=== PATIENT | male | born 1960 ===

== ENCOUNTER 2024-06-05 05:53 | Day surgery (SDC) | payer OTHER ==
[2024-06-02 10:54] LABS: HEMATOCRIT 46.6 % (39.0-48.0); HEMOGLOBIN 15.8 g/dL (13-16.00); MEAN CELL VOLUME 93.1 fL (80.0-100.00); MEAN CORPUSCULAR HEMOGLOBIN 31.5 pg (27.00-32.0); MEAN CORPUSCULAR HGB CONC 33.8 g/dl (32.0-36.0); PLATELET COUNT 236 K/uL (150-450); RED CELL DISTRIBUTION WIDTH 13.7 % (11.5-14.5)
[2024-06-02 11:23] LABS: INR 1.09; PARTIAL THROMBOPLASTIN TIME 31.9 SECONDS (22.0-34.0); PROTHROMBIN TIME 11.8 SECONDS (9.0-11.5)
[2024-06-02 11:34] LABS: BILIRUBIN TOTAL 0.53 mg/dL (0.3-1.2); CALCIUM 9.6 mg/dL (8.5-10.1); CREATININE SERUM 0.81 mg/dL (0.70-1.30); GFR 95.63; GLOBULINA 3.8 G/DL (2.4-3.5); TOTAL PROTEIN 7.8 gm/dL (6.4-8.2)
[2024-06-05] MEDS ORDERED: MIDAZOLAM HCL 2 MG/2 ML VIAL IV ONE (10:00)
[2024-06-05] MEDS ORDERED: fentaNYL CITRATE 50 MCG/ML AMPUL IV ONE (10:00)
[2024-06-05] MEDS ORDERED: DIPHENHYDRAMINE HCL 50 MG/ML VIAL 1ML IV ONE (10:00)
== END 2024-06-05 12:20 | disposition home or self-care (01) ==
LOC: AMB-ENDOS 05:53 → CIR.AMB 12:00 → AMB-ENDOS 12:20
PROVIDERS: ATTEND Surgery
DX: D37.4 Neoplasm of uncertain behavior of colon (principal); K63.5 Polyp of colon; K57.30 Diverticulosis of large intestine without perforation or abscess without bleeding

== ENCOUNTER 2024-07-14 11:57 | Inpatient (IN) | payer OTHER ==
[~2024-07-14] VITALS: Ht 170.2 cm; Wt 81.6 kg
[2024-07-14] MEDS ORDERED: GRALISE600 MG PO (13:05)
[2024-07-14] MEDS ORDERED: METFORMIN HCL1000 M2 PO (13:07)
[2024-07-14] MEDS ORDERED: GLUCOTROL XL5 MG PO (13:07)
[2024-07-14] MEDS ORDERED: AVAPRO300 MG PO (13:08)
[2024-07-14] MEDS ORDERED: NORVASC10 MG PO (13:08)
[2024-07-14] MEDS ORDERED: LIPITOR20 MG PO (13:08)
[2024-07-14] MEDS ORDERED: HUMULIN 70100 UNIT/2 SUBCUTANEO (13:14)
[2024-07-21] MEDS ORDERED: CEFTRIAXONE SODIUM 2,000 MG VIAL IV ONE (08:45)
[2024-07-21] MEDS ORDERED: LIDOCAINE HCL 1%/EPINEPHRINE 20ML VIAL IJ ONE (08:45)
[2024-07-21] MEDS ORDERED: BUPIVACAINE HCL 30 ML VIAL IJ ONE (08:45)
[2024-07-21] MEDS ORDERED: METRONIDAZOLE/SODIUM CHLORIDE 5 MG/ML ML IV ONE (08:45)
[2024-07-21] MEDS ORDERED: FLONASE16 GM (09:25)
[2024-07-21] MEDS ORDERED: IRBESARTAN-HCT1 EAC1 (09:25)
[2024-07-21] MEDS ORDERED: FLUOXETINE HCL20 MG (09:25)
[2024-07-21] MEDS ORDERED: FINASTERIDE5 MG (09:25)
[2024-07-21] MEDS ORDERED: OMEPRAZOLE40 MG (09:25)
[2024-07-21] MEDS ORDERED: GLIPIZIDE10 MG (09:25)
[2024-07-21] MEDS ORDERED: TAMSULOSIN HCL0.4 MG (09:25)
[2024-07-21] MEDS ORDERED: TRAZODONE HCL50 MG (09:25)
[2024-07-21] MEDS ORDERED: GABAPENTIN800 M1 (09:26)
[2024-07-21] MEDS ORDERED: DEXTROSE 50 % IN WATER 0.5 G/ML DISP.SYRIN IV PRN ×2 (10:15→12:15)
[2024-07-21] MEDS ORDERED: 0.9 % SODIUM CHLORIDE 1,000 ML IV SCH (10:15)
[2024-07-21] MEDS ORDERED: OxyCODONE HCL 5 MG TABLET (ROXICODONE) PO PRN (10:15)
[2024-07-21] MEDS ORDERED: ONDANSETRON HCL 2 MG/ML VIAL IV PRN (10:15)
[2024-07-21] MEDS ORDERED: MORPHINE SULFATE 4 MG/ML CARTRIDGE IV PRN (10:15)
[2024-07-21] MEDS ORDERED: MORPHINE SULFATE 4 MG/ML VIAL IV ONE ×2 (11:05→11:35)
[2024-07-21] MEDS ORDERED: ALBUTEROL SULFATE 3 ML/2.5 MG AMPUL.NEB IH SCH (12:04)
[2024-07-21 12:14] LABS: HEMATOCRIT 42.3 % (39.0-48.0); HEMOGLOBIN 14.5 g/dL (13-16.00); MEAN CELL VOLUME 92.6 fL (80.0-100.00); MEAN CORPUSCULAR HEMOGLOBIN 31.7 pg (27.00-32.0); MEAN CORPUSCULAR HGB CONC 34.2 g/dl (32.0-36.0); PLATELET COUNT 197 K/uL (150-450); RED BLOOD COUNT 4.56 M/uL (4.00-6.00); RED CELL DISTRIBUTION WIDTH 14.1 % (11.5-14.5)
[2024-07-21] MEDS ORDERED: INSULIN LISPRO 1,000 UNIT/10 ML UNITS SUBCUTANEO PRN (12:15)
[2024-07-21] MEDS ORDERED: ENALAPRILAT DIHYDRATE 1.25 MG/ML VIAL IV PRN (12:15)
[2024-07-21 12:36] LABS: ALBUMIN 3.5 gm/dL (3.4-5.0); CALCIUM 8.6 mg/dL (8.5-10.1); CREATININE SERUM 0.92 mg/dL (0.70-1.30); GFR 82.57; MAGNESIUM 1.7 mg/dL (1.8-2.4); PHOSPHOROUS 3.4 mg/dL (2.5-4.9); POTASSIUM 4.07 mEq/L (3.5-5.1)
[2024-07-21] MEDS ORDERED: HYOSCYAMINE SULFATE 0.125 MG TAB.SUBL SL SCH (13:00)
[2024-07-21] MEDS ORDERED: ACETAMINOPHEN 500 MG GEL..CAP PO SCH (14:00)
[2024-07-21] MEDS ORDERED: GABAPENTIN 300 MG CAPSULE PO SCH (17:00)
[2024-07-21] MEDS ORDERED: METRONIDAZOLE/SODIUM CHLORIDE 500 MG/100 ML PIGGYBACK IV SCH (17:00)
[2024-07-21] MEDS ORDERED: POLYETHYLENE GLYCOL 3350 17 GM BLIST.PACK PO SCH (17:00)
[2024-07-21 17:32] VITALS: BP 140/91; O2SAT 95
[2024-07-21] MEDS ORDERED: FAMOTIDINE/PF 20 MG/2 ML VIAL IV PUSH SCH (21:00)
[2024-07-21] MEDS ORDERED: TAMSULOSIN HCL 0.4 MG CAP PO SCH (21:00)
[2024-07-21] MEDS ORDERED: CELECOXIB 200 MG CAPSULE PO SCH (21:00)
[2024-07-22] VITALS (9 sets, daily range): BP systolic 61–119; BP diastolic 42–83; O2SAT 88–100
[2024-07-22] MEDS ORDERED: 0.9 % SODIUM CHLORIDE 1,000 ML IV SCH (03:15)
[2024-07-22 03:23] LABS: HEMATOCRIT 32.9 % (39.0-48.0); MEAN CELL VOLUME 93.1 fL (80.0-100.00); MEAN CORPUSCULAR HEMOGLOBIN 31.2 pg (27.00-32.0); MEAN CORPUSCULAR HGB CONC 33.5 g/dl (32.0-36.0); PLATELET COUNT 231 K/uL (150-450); RED BLOOD COUNT 3.53 M/uL (4.00-6.00); RED CELL DISTRIBUTION WIDTH 14.6 % (11.5-14.5)
[2024-07-22 03:55] LABS: ALBUMIN 2.8 gm/dL (3.4-5.0); CREATININE SERUM 2.63 mg/dL (0.70-1.30); GFR 24.57; MAGNESIUM 1.9 mg/dL (1.8-2.4); PHOSPHOROUS 6.2 mg/dL (2.5-4.9); POTASSIUM 5.06 mEq/L (3.5-5.1)
[2024-07-22] MEDS ORDERED: NOREPINEPHRINE BITARTRATE 8 MG in DEXTROSE 5 % IN WATER 250 ML IV SCH ×2 (04:00→16:15)
[2024-07-22] MEDS ORDERED: INSULIN NPH HUMAN ISOPHANE 1,000 UNITS/10 ML UNITS SUBCUTANEO STA (08:05)
[2024-07-22] MEDS ORDERED: HYDROCHLOROTHIAZIDE 12.5 MG CAPSULE PO SCH (09:00)
[2024-07-22] MEDS ORDERED: IRBESARTAN 300 MG TABLET PO SCH (09:00)
[2024-07-22] MEDS ORDERED: LEVALBUTEROL HCL 0.63 MG/3 ML SOLUTION IH SCH (09:00)
[2024-07-22] MEDS ORDERED: FINASTERIDE 5 MG TABLET PO SCH (09:00)
[2024-07-22] MEDS ORDERED: AMLODIPINE BESYLATE 10 MG TABLET PO SCH (09:00)
[2024-07-22 14:43] LABS: ABG PH 7.429 (7.35-7.45); ABG PO2 67.7 mmHg (80-100); ABG pCO2 27.2 mmHg (35-45); BICARBONATE 17.6 mmol/l (23-25); SaO2 93.5 %; Tco2 18.5 mmol/l; allen test SATISFACTORY; o2 21 %; puncture site RADIAL RIGHT
[2024-07-22] MEDS ORDERED: ATORVASTATIN CALCIUM 20 MG TABLET PO SCH (17:00)
[2024-07-22] MEDS ORDERED: ENOXAPARIN SODIUM 40 MG/0.4 ML SYRINGE SUBCUTANEO SCH (17:00)
[2024-07-22] MEDS ORDERED: INSULIN NPH HUMAN ISOPHANE 1,000 UNITS/10 ML UNITS SUBCUTANEO SCH (17:00)
[2024-07-22] MEDS ORDERED: PANTOPRAZOLE SODIUM 40 MG/VIAL VIAL IV SCH (19:22)
[2024-07-23] VITALS (7 sets, daily range): BP systolic 136–138; BP diastolic 70–80; O2SAT 92–100
[2024-07-23] MEDS ORDERED: hydrALAZINE HCL 20 MG VIAL IV PRN (05:00)
[2024-07-23] MEDS ORDERED: AMINO ACIDS 4.25 %/DEXTROSE 5% 1,000 ML PERIFERAL SCH (05:15)
[2024-07-23] MEDS ORDERED: PANTOPRAZOLE SODIUM 80 MG in 0.9 % SODIUM CHLORIDE 100 ML IV SCH (06:45)
[2024-07-23] MEDS ORDERED: INSULIN NPH HUMAN ISOPHANE 1,000 UNITS/10 ML UNITS SUBCUTANEO SCH (08:00)
[2024-07-23] MEDS ORDERED: MEROPENEM 500 MG/VIAL VIAL IV SCH (09:00)
[2024-07-23] MEDS ORDERED: ENOXAPARIN SODIUM 40 MG/0.4 ML SYRINGE SUBCUTANEO SCH (09:00)
[2024-07-23 13:36] LABS: HEMATOCRIT 27.9 % (39.0-48.0); HEMOGLOBIN 9.7 g/dL (13-16.00); MEAN CELL VOLUME 88.7 fL (80.0-100.00); MEAN CORPUSCULAR HEMOGLOBIN 30.8 pg (27.00-32.0); MEAN CORPUSCULAR HGB CONC 34.7 g/dl (32.0-36.0); PLATELET COUNT 140 K/uL (150-450); RED BLOOD COUNT 3.14 M/uL (4.00-6.00); RED CELL DISTRIBUTION WIDTH 15.2 % (11.5-14.5)
[2024-07-23 13:55] LABS: INR 1.08; PARTIAL THROMBOPLASTIN TIME 28.8 SECONDS (22.0-34.0); PROTHROMBIN TIME 11.7 SECONDS (9.0-11.5)
[2024-07-23] MEDS ORDERED: FUROsemide 20 MG/2 ML VIAL IV SCH (14:15)
[2024-07-23 14:43] LABS: CALCIUM 7.8 mg/dL (8.5-10.1); CREATININE SERUM 0.97 mg/dL (0.70-1.30); GFR 77.67; POTASSIUM 4.1 mEq/L (3.5-5.1); TSH 0.568 uIU/mL (0.358-3.74)
[2024-07-23 14:46] LABS: ALBUMIN 2.6 gm/dL (3.4-5.0); BILIRUBIN TOTAL 0.54 mg/dL (0.3-1.2); CREATININE SERUM 1.01 mg/dL (0.70-1.30); GFR 74.13; GLOBULINA 2.5 G/DL (2.4-3.5); POTASSIUM 4.05 mEq/L (3.5-5.1); TOTAL PROTEIN 5.1 gm/dL (6.4-8.2)
[2024-07-23 14:50] LABS: PHOSPHOROUS 1.5 mg/dL (2.5-4.9)
[2024-07-23] MEDS ORDERED: POTASSIUM PHOS,M-BASIC-D-BASIC 3 MM/ML VIAL IV ONE (16:00)
[2024-07-23] MEDS ORDERED: AA 4.25%/CAL/LYTES/DEXT 5% 1,000 ML PERIFERAL SCH (17:00)
[2024-07-23 19:32] LABS: ABG PH 7.458 (7.35-7.45); ABG PO2 60.4 mmHg (80-100); ABG pCO2 32.8 mmHg (35-45); BASE EXCESS -0.3 mmol/l; BICARBONATE 22.7 mmol/l (23-25); SaO2 92.2 %; Tco2 23.7 mmol/l; allen test SATISFACTORY; puncture site RADIAL LEFT
[2024-07-23 19:33] LABS: o2 21 %
[2024-07-24] VITALS: BP 126/71; BP 136/85; O2SAT 100; O2SAT 95
[2024-07-24 04:01] VITALS: O2SAT 90
[2024-07-24 08:49] VITALS: BP 139/75; O2SAT 98
[2024-07-24] MEDS ORDERED: IRBESARTAN 150 MG TABLET PO NR (11:00)
[2024-07-24] MEDS ORDERED: MIDAZOLAM HCL 2 MG/2 ML VIAL IV STA (14:25)
[2024-07-24] MEDS ORDERED: FentaNYL CITRATE/PF 50MCG/ML 2ML VIAL IJ STA (14:25)
[2024-07-24 15:28] LABS: HEMATOCRIT 31.8 % (39.0-48.0); HEMOGLOBIN 11.2 g/dL (13-16.00); MEAN CELL VOLUME 87.3 fL (80.0-100.00); MEAN CORPUSCULAR HEMOGLOBIN 30.8 pg (27.00-32.0); MEAN CORPUSCULAR HGB CONC 35.3 g/dl (32.0-36.0); RED BLOOD COUNT 3.64 M/uL (4.00-6.00); RED CELL DISTRIBUTION WIDTH 15.3 % (11.5-14.5)
[2024-07-24 15:35] LABS: PLATELET COUNT 108 K/uL (150-450)
[2024-07-24 15:51] LABS: CALCIUM 8.1 mg/dL (8.5-10.1); CREATININE SERUM 0.74 mg/dL (0.70-1.30); GFR 106.15; MAGNESIUM 1.9 mg/dL (1.8-2.4); POTASSIUM 3.37 mEq/L (3.5-5.1)
[2024-07-24 16:05] LABS: PHOSPHOROUS 1.4 mg/dL (2.5-4.9)
[2024-07-24 16:57] VITALS: O2SAT 95
[2024-07-24 17:13] VITALS: BP 146/80; O2SAT 96
[2024-07-24] MEDS ORDERED: MEROPENEM 500 MG/VIAL VIAL IV SCH (18:00)
[2024-07-24] MEDS ORDERED: POTASSIUM CHLORIDE 20MEQ/100ML H2O PB IV ONE (20:15)
[2024-07-24] MEDS ORDERED: POTASSIUM PHOS,M-BASIC-D-BASIC 3 MM/ML VIAL IV ONE (20:15)
[2024-07-25 00:18] VITALS: BP 162/86; O2SAT 96
[2024-07-25 06:43] LABS: HEMATOCRIT 30.8 % (39.0-48.0); HEMOGLOBIN 10.9 g/dL (13-16.00); MEAN CELL VOLUME 87.4 fL (80.0-100.00); MEAN CORPUSCULAR HEMOGLOBIN 30.8 pg (27.00-32.0); MEAN CORPUSCULAR HGB CONC 35.3 g/dl (32.0-36.0); RED BLOOD COUNT 3.52 M/uL (4.00-6.00); RED CELL DISTRIBUTION WIDTH 15.1 % (11.5-14.5)
[2024-07-25 06:44] LABS: PLATELET COUNT 129 K/uL (150-450)
[2024-07-25] MEDS ORDERED: SUCRALFATE 1 G TABLET PO SCH (07:00)
[2024-07-25 07:15] LABS: MANUAL PLATELET COUNT 214
[2024-07-25 07:26] LABS: CALCIUM 8.2 mg/dL (8.5-10.1); CREATININE SERUM 0.69 mg/dL (0.70-1.30); GFR 115.07; PHOSPHOROUS 2.2 mg/dL (2.5-4.9); POTASSIUM 3.52 mEq/L (3.5-5.1)
[2024-07-25 07:46] LABS: PH,URINE 7.5 (5.0-8.0); URINE APPEARANCE Clear; URINE BILIRRUBIN Negative (NEGATIVE); URINE BLOOD Moderate; URINE COLOR Yellow; URINE KETONE 15 (NEGATIVE); URINE LEUKOCYTE Negative; URINE NITRATE Negative; URINE PROTEIN Trace (NEGATIVE); URINE UROBILINOGEN 0.2 E.U./dl
[2024-07-25 07:48] LABS: URINE BACTERIA 16.3 uL (0.0-1933); URINE RBC 158.6 uL (0.0-20.8); URINE WBC 12.8 uL (0.0-23.2)
[2024-07-25 07:51] LABS: URINE CAST 0.45 uL (0.0-1.40); URINE GLUCOSE 250 MG/DL (NEGATIVE)
[2024-07-25 08:43] VITALS: BP 130/76; O2SAT 95
[2024-07-25] MEDS ORDERED: IRBESARTAN 150 MG TABLET PO SCH (09:00)
[2024-07-25] MEDS ORDERED: PANTOPRAZOLE SODIUM 40 MG/VIAL VIAL IV SCH (09:00)
[2024-07-25] MEDS ORDERED: IRBESARTAN 300 MG TABLET PO SCH (09:00)
[2024-07-25 09:21] VITALS: O2SAT 95
[2024-07-25] MEDS ORDERED: Cyanocobalamin/Mecobalamin 1 TAB.SL SL SCH (12:00)
[2024-07-25] MEDS ORDERED: SOD FERRIC GLUC COMPLX/SUCROSE 62.5 MG in 0.9 % SODIUM CHLORIDE 50 ML IV SCH (12:00)
[2024-07-25 16:30] VITALS: BP 113/69; O2SAT 94
[2024-07-25 18:54] VITALS: O2SAT 93
[2024-07-26] VITALS: BP 145/81; O2SAT 95
[2024-07-26 08:00] VITALS: BP 150/90; O2SAT 95
[2024-07-26] MEDS ORDERED: LEVSIN/SL0.125 MG SL (11:38)
[2024-07-26] MEDS ORDERED: ACETAMINOPHEN500 M2 PO (11:38)
[2024-07-26] MEDS ORDERED: INTESTINEX680 M2 PO (11:40)
[2024-07-26] MEDS ORDERED: CARAFATE1 GM/10 ML PO (11:40)
[2024-07-26] MEDS ORDERED: NEURONTIN300 MG PO (11:41)
[2024-07-26 13:03] VITALS: O2SAT 94
== END 2024-07-26 14:56 | disposition home or self-care (01) | DRG 329 ==
LOC: SURH 07-21 05:00 → O/R 07-21 05:00 → SURH 07-21 12:15
PROVIDERS: Internal Medicine Endocrinology, Diabetes & Metabolism; Internal Medicine Geriatric Medicine; Internal Medicine Infectious Disease; ADMIT Surgery; ATTEND Surgery
PROC: 0DBP4ZZ Excision of Rectum, Percutaneous Endoscopic Approach (ICD-10-PCS; 2024-07-21)
PROC: 07BC4ZZ Excision of Pelvis Lymphatic, Percutaneous Endoscopic Approach (ICD-10-PCS; 2024-07-21)
PROC: 3E0F7GC Introduction of Other Therapeutic Substance into Respiratory Tract, Via Natural or Artificial Opening (ICD-10-PCS; 2024-07-21)
PROC: 0DTN4ZZ Resection of Sigmoid Colon, Percutaneous Endoscopic Approach (ICD-10-PCS; principal; 2024-07-21 13:15)
PROC: 5A0935A Assistance with Respiratory Ventilation, Less than 24 Consecutive Hours, High Flow/Velocity Cannula (ICD-10-PCS; 2024-07-22)
PROC: 30243N1 Transfusion of Nonautologous Red Blood Cells into Central Vein, Percutaneous Approach (ICD-10-PCS; 2024-07-22)
PROC: 02HV33Z Insertion of Infusion Device into Superior Vena Cava, Percutaneous Approach (ICD-10-PCS; 2024-07-23)
PROC: 3E0436Z Introduction of Nutritional Substance into Central Vein, Percutaneous Approach (ICD-10-PCS; 2024-07-23)
PROC: 0DJ08ZZ Inspection of Upper Intestinal Tract, Via Natural or Artificial Opening Endoscopic (ICD-10-PCS; 2024-07-24)
DX: D12.7 Benign neoplasm of rectosigmoid junction (principal); K22.6 Gastro-esophageal laceration-hemorrhage syndrome; T81.19XA Other postprocedural shock, initial encounter; N17.9 Acute kidney failure, unspecified; D62 Acute posthemorrhagic anemia; K92.0 Hematemesis; I95.81 Postprocedural hypotension; E11.65 Type 2 diabetes mellitus with hyperglycemia; D69.6 Thrombocytopenia, unspecified; K63.5 Polyp of colon; D12.5 Benign neoplasm of sigmoid colon; K57.30 Diverticulosis of large intestine without perforation or abscess without bleeding; R19.4 Change in bowel habit; R59.0 Localized enlarged lymph nodes; K66.0 Peritoneal adhesions (postprocedural) (postinfection); K44.9 Diaphragmatic hernia without obstruction or gangrene; I10 Essential (primary) hypertension; N18.9 Chronic kidney disease, unspecified; Z79.84 Long term (current) use of oral hypoglycemic drugs; Z79.4 Long term (current) use of insulin; Y83.8 Other surgical procedures as the cause of abnormal reaction of the patient, or of later complication, without mention of misadventure at the time of the procedure; Y92.230 Patient room in hospital as the place of occurrence of the external cause